=== PATIENT | female | born 1955 | race Caucasian/White ===

== ENCOUNTER → 2021-05-11 10:33 | Outpatient (CLI) | payer MEDICARE, OTHER, SELFPAY ==
--- NOTE | ~2021-05-11 | MM_ITS ---
EXAMINATION: MM screening [facility] BI w chayo HISTORY: Screening mammogram TECHNIQUE: Craniocaudal and mediolateral oblique 3-D tomosynthesis images were obtained and synthetic 2-D images were generated. CAD analysis was submitted and interpreted. COMPARISON: 12/06/2019, 07/19/2018, 06/09/2018, 05/15/2016 BREAST PARENCHYMAL COMPOSITION: There are scattered areas of fibroglandular density. FINDINGS: There is no evidence of suspicious mass, calcification, or architectural distortion to sugg est malignancy in either breast. There has been no suspicious interval change. IMPRESSION: 1. No mammographic evidence of malignancy. 2. Recommend routine screening mammography in one year. BI-RADS Category 1: Negative Reviewed, dictated and finalized at location A.
== END ==
PROVIDERS: Visit Provider Nurse Practitioner Adult Health
DX: Z12.31 Encounter for screening mammogram for malignant neoplasm of breast (principal)
CPT/HCPCS: 77063; 77067

== ENCOUNTER → 2022-02-07 15:37 | Outpatient (CLI) | payer MEDICARE, OTHER, SELFPAY ==
--- NOTE | ~2022-02-07 | DEXA_ITS ---
Bone Density Report Name: REYNA BURGESS Age: 66 Sex: Female Ethnicity: White Date of : 1955 Indication: monitoring treatment;postmenopausal Referring Provider: NADIA LARRY Study: Bone densitometry was performed. Exam Date: February 07, 2022 Accession number: [id number] Bone Density: Region BMD T-score Z-score Classification AP Spine (L1-L4) 1.212 1.5 3.4 Normal Femoral Neck (Left) 0.957 1.0 2.6 Normal Total Hip (Left) 1.015 0.6 1.9 Normal Femoral Neck (Right) 0.958 1.0 2.6 Normal Total Hip (Right) 1.046 0.9 2.2 Normal Total Hip Mean 1.031 0.8 2.1 Normal World Health Organization criteria for BMD impression classify patients as: Normal (T-score at or above -1.0), Osteopenia (T-score between -1.0 and -2.5), or Osteoporosis (T-score at or below -2.5). 10-year Fracture Risk: FRAX not reported because: All T-scores for Spine Total, Hip Total, Femoral Neck at or above -1.0 Treated for osteoporosis Previous Exams: Region Exam Age BMD T-score BMD Change BMD Change Date g/cm2 vs Baseline vs Previous AP Spine(L1-L4) 02/07/2022 66 1.212 1.5 0.072* 0.060* 05/15/2016 61 1.152 1.0 0.013 0.013 03/08/2013 57 1.140 0.8 Total Hip(Left) 02/07/2022 66 1.015 0.6 0.042* 0.003 05/15/2016 61 1.012 0.6 0.039* 0.039* 03/08/2013 57 0.973 0.3 Total Hip(Right) 02/07/2022 66 1.046 0.9 0.069* 0.012 05/15/2016 61 1.034 0.8 0.057* 0.057* 03/08/2013 57 0.977 0.3 *Denotes significance at 95% confidence level, LSC for AP Spine = 0.022 g/cm2, LSC for Total Hip = 0.027 g/cm2 Clinical Information Provided by Patient: Is being treated for osteoporosis Has used the following medications: HRT (i.e. estrogen/hormone therapy), Vitamin D, Calcium Patient maximum height was 64.5 Menopause Age: 52 Does not regularly consume dairy products Drinks caffeinated beverages Onset of menses at age 13 Number of children 1 Impression: The patient has normal bone mass. No significant bone loss was observed. Discussion: PATIENT UNDER TREATMENT WITH NO SIGNIFICANT BMD LOSS SINCE LAST EXAM. In an untreated patient, BMD typically declines with age. A lack of decline or gain is usually a sign that treatment is efficacious and fracture risk is reduced. It is important to ask patients whether they are taking their med
== END ==
PROVIDERS: PCP Nurse Practitioner Adult Health; Visit Provider Obstetrics & Gynecology Gynecology
DX: Z78.0 Asymptomatic menopausal state (principal)
CPT/HCPCS: 77080

== ENCOUNTER 2024-12-08 08:22 | Outpatient (CLI) | payer OTHER, SELFPAY | END 2024-12-08 08:23 | disposition home or self-care (01) | LOC: ANHAUDIO 08:23 | PROVIDERS: PCP Family Medicine; Visit Provider Family Medicine | DX: H93.19 Tinnitus, unspecified ear (principal); H90.3 Sensorineural hearing loss, bilateral | CPT/HCPCS: 92557; 92567 ==

== ENCOUNTER 2025-01-24 10:00 | Outpatient (RCR) | payer SELFPAY | END 2025-01-24 23:59 | disposition home or self-care (01) | LOC: ANHAUDIO 10:00 | PROVIDERS: PCP Family Medicine; Visit Provider Family Medicine | DX: Z46.1 Encounter for fitting and adjustment of hearing aid (principal) | CPT/HCPCS: 99199; V5160; V5261 ==

== ENCOUNTER 2025-10-23 12:56 | Outpatient (CLI) | payer OTHER, SELFPAY ==
--- NOTE | ~2025-10-23 | DEXA_ITS ---
Bone Density Report Name: REYNA BURGESS Age: 70 Sex: Female Ethnicity: White Date of : 1955 Indication: postmenopausal; screening for osteoporosis; Referring Provider: RYDER HELM Study: Bone densitometry was performed. Exam Date: October 23, 2025 Accession number: [id number] Bone Density: Region BMD T-score Z-score Classification AP Spine(L1-L4) 1.176 1.2 3.3 Normal Femoral Neck (Left) 0.871 0.2 2.0 Normal Total Hip (Left) 1.047 0.9 2.4 Normal Femoral Neck (Right) 0.867 0.2 2.0 Normal Total Hip (Right) 1.050 0.9 2.4 Normal Total Hip Mean 1.048 0.9 2.4 Normal World Health Organization criteria for BMD impression classify patients as: Normal (T-score at or above -1.0), Osteopenia (T-score between -1.0 and -2.5), or Osteoporosis (T-score at or below -2.5). 10-year Fracture Risk: FRAX not reported because: All T-scores for Spine Total, Hip Total, Femoral Neck at or above -1.0 Previous Exams: Region Exam Age BMD T-score BMD Change BMD Change Date g/cm2 vs Baseline vs Previous AP Spine (L1-L4) 10/23/2025 70 1.176 1.2 -0.036 (-3.0%) -0.036 (-3.0%) 02/07/2022 66 1.212 1.5 Total Hip(Left) 10/23/2025 70 1.047 0.9 0.050 (5.0%)* 0.032 (3.1%)# 02/07/2022 66 1.015 0.6 0.019 (1.9%)# 0.019 (1.9%)# 06/13/2019 64 0.996 0.4 Total Hip(Right) 10/23/2025 70 1.050 0.9 0.059 (5.9%)* 0.004 (0.3%)# 02/07/2022 66 1.046 0.9 0.055 (5.6%)# 0.055 (5.6%)# 06/13/2019 64 0.991 0.4 *Denotes significance at 95% confidence level, LSC for AP Spine = 0.022 g/cm2, LSC for Total Hip = 0.027 g/cm2 # Denotes dissimilar scan types or analysis methods Clinical Information Provided by Patient: Has used the following medications: HRT (i.e. estrogen/hormone therapy), Vitamin D, Calcium Patient maximum height was 64 Menopause Age: 52 No regular weight bearing exercise Drinks caffeinated beverages Onset of menses at age 14 Number of children 2 Impression: The patient has normal bone mass. No significant bone loss was observed. Discussion: BONE DENSITY IS ABOVE THE MINIMUM DESIRABLE LEVEL AT ALL SKELETAL SITES TESTED. This patient?s bone mineral density is above the minimum desirable level (T-score -1.0 or better) at all sites measured. The patient should follow a healthful lifestyle (good nutrition with adequate calcium and vitamin D, and appropriate weight-bearing exercise). Follow-Up: Consider repeating this study in 5 years or sooner if there is some new clinical indication. Reported by: TAMIKO on 10/23/2025 1:40:00 PM. Reviewed, dictated and finalized at location A.
== END 2025-10-23 12:57 | disposition home or self-care (01) ==
LOC: ANHFOHIMG 12:58
PROVIDERS: PCP Family Medicine; Visit Provider Family Medicine
DX: Z78.0 Asymptomatic menopausal state (principal)
CPT/HCPCS: 77080